=== PATIENT | female | born 1980 | race Caucasian/White ===

== ENCOUNTER → 2016-12-18 | Outpatient (CLI) | payer BC ==
--- NOTE | 2016-12-18 13:45 | RAD ---
Indication right leg pain. Grayscale color Doppler and spectral imaging was performed. Examination was targeted to the veins of the right lower extremity. The common femoral, femoral and popliteal vessels appear normal. No thrombus is seen. The visualized calf veins appeared normal. The left common femoral vein was also unremarkable. IMPRESSION: Negative right lower extremity venous analysis for DVT
== END | disposition home or self-care (01) ==
LOC: US 12:30
PROVIDERS: ATTEND Nurse Practitioner Family
DX: M79.604 Pain in right leg (principal); M25.561 Pain in right knee; M79.661 Pain in right lower leg
CPT/HCPCS: 93971

== ENCOUNTER → 2017-01-22 | Outpatient (CLI) | payer BC ==
[~2017-01-22] MED LIST: IOHEXOL 240 MG/ML 50ML VIAL. ONE; IOHEXOL 300 MG/ML 75 ML VIAL. IV ONE
--- NOTE | 2017-01-22 11:27 | RAD ---
CT abdomen and pelvis with contrast 01/22/2017 Clinical indication: Right-sided abdominal pain. Comparison: CT abdomen and pelvis 12/27/2014 Technique: Multiple CT images of the abdomen and pelvis were obtained following the intravenous administration of 75 mL Omnipaque 300. PQRS Compliance Statement: One or more of the following individualized dose reduction techniques were utilized for this examination: 1. Automated exposure control 2. Adjustment of the mA and/or kV according to patient size 3. Use of iterative reconstruction technique Findings: Abdomen and pelvis: Heart size is normal. Visualized lung bases are clear. Liver, gallbladder, spleen, adrenal glands and kidneys are unremarkable. Pancreas is unremarkable apart from tiny fat attenuation structure at the pancreatic tail which may represent intraparenchymal benign lipoma or peripancreatic fat lobule. Abdominal aorta is normal in caliber. Major portal, splenic and visualized appear mesenteric veins are patent. No retroperitoneal or mesenteric lymphadenopathy. No abdominal free fluid. Small and large bowel loops are normal in caliber without obstruction. Moderate retained colonic stool. The appendix is normal in appearance. There is a peripherally enhancing cystic structure in the right adnexa measuring 1.7 cm, likely corpus luteum. No iliac or internal lymphadenopathy. Mildly distended and unopacified urinary bladder unremarkable. There are no destructive osseous lesions. Impression: 1. No acute abdominal or pelvic process. 2. Right adnexal preflight enhancing cystic structure, likely a corpus luteum. 3. Moderate retained colonic stool, may contribute to constipation.
== END | disposition home or self-care (01) ==
LOC: CT 08:28
PROVIDERS: ATTEND Nurse Practitioner Family
DX: R10.33 Periumbilical pain (principal); R14.0 Abdominal distension (gaseous); R10.31 Right lower quadrant pain; R10.32 Left lower quadrant pain; R10.13 Epigastric pain
CPT/HCPCS: 74177; Q9966; Q9967

== ENCOUNTER → 2021-04-06 | Outpatient (CLI) | payer BC, OTHER ==
--- NOTE | 2021-04-06 10:05 | RAD ---
EXAMINATION: Thyroid sonogram INDICATION: Nontoxic goiter. COMPARISON: 04/21/2019 Technique: Real-time grayscale and color Doppler imaging of the thyroid gland was performed per patti col. Findings: The right thyroid lobe measures: 6.1 x 2.2 x 1.9 cm. The left thyroid lobe measures: 5.4 x 2.2 x 1.8 cm. The isthmus measures: 0.26 cm. Estimated total number of nodules >/= 1cm: 0 Number of spongiform nodules >/= 2cm not described below (TR1): 0 There is diffusely heterogeneous thyroid parenchyma. IMPRESSION: 1. Enlarged heterogeneous thyroid. No discrete nodule is seen. The previously described complicated c yst within the left thyroid lobe is not seen. 2. No nodule for TI-RADS categorization. ACR TI-RADS recommendations TR5 (?7 points) - FNA if ? 1cm, follow-up if 0.5 - 0.9 cm every year for 5 years TR4 (4-6 points) - FNA if ? 1.5cm, follow-up if 1 - 1.4 cm in 1, 2, 3 and 5 years TR3 (3 points)- FNA if ? 2.5cm, follow-up if 1.5 - 2.4 cm in 1, 3 and 5 years TR2 (2 points) & TR1 (0 points) - No FNA or follow-up *Decision to biopsy should include other considerations such as patient demographics and relevant cli nical information. Reference: TIRADS 2017 J Am Scott Radiol 2017;14:[id number] Electronically signed by: Mayra Clarke MD (04/06/2021 10:02 AM) [id number]
== END ==
LOC: US 08:23
PROVIDERS: ATTEND Nurse Practitioner Adult Health
DX: E04.9 Nontoxic goiter, unspecified (principal)
CPT/HCPCS: 76536

== ENCOUNTER → 2021-08-01 | Outpatient (CLI) | payer OTHER | LOC: LAB 09:02 | PROVIDERS: ATTEND Internal Medicine | DX: E04.9 Nontoxic goiter, unspecified (principal) | CPT/HCPCS: 36415; 86376 ==